=== PATIENT | male | born 1980 | race Caucasian/White ===

== ENCOUNTER 2018-05-14 21:16 | Emergency (ER) | payer BC ==
[~2018-05-14] VITALS: Ht 172.7 cm; Wt 77.1 kg
[2018-05-14 21:40] VITALS: BP 116/70
[2018-05-14] MEDS ORDERED: KETOROLAC TROMETHAMINE INJ 60 MG/2 ML VIAL IM ONE (23:30)
[2018-05-14] MEDS ORDERED: KETOROLAC TROMETHAMINE INJ 30 MG/ML VIAL ONE (23:42)
== END 2018-05-14 23:58 | disposition home or self-care (01) ==
LOC: ER 21:16
DX: M54.12 Radiculopathy, cervical region (principal); M62.838 Other muscle spasm; F10.10 Alcohol abuse, uncomplicated; F12.10 Cannabis abuse, uncomplicated; F14.10 Cocaine abuse, uncomplicated
CPT/HCPCS: 96372; 99283; A4606; J1885; Z7610